=== PATIENT | male | born 1935 | race Caucasian/White ===

== ENCOUNTER → 2021-02-24 13:52 | Outpatient (BNVA) | payer MEDICARE, SELFPAY | PROVIDERS: PCP Internal Medicine; Visit Provider Urology | DX: N52.01 Erectile dysfunction due to arterial insufficiency (principal); N40.1 Benign prostatic hyperplasia with lower urinary tract symptoms | CPT/HCPCS: 51798; 81002; 99212 ==

== ENCOUNTER → 2021-04-20 10:30 | Outpatient (BNVA) | payer MEDICARE, SELFPAY | PROVIDERS: PCP Internal Medicine; Visit Provider Urology | DX: N40.1 Benign prostatic hyperplasia with lower urinary tract symptoms (principal); N52.01 Erectile dysfunction due to arterial insufficiency | CPT/HCPCS: 52000; 99212 ==

== ENCOUNTER 2021-08-08 08:58 | Day surgery (SDC) | payer MEDICARE, SELFPAY ==
[2021-07-19 11:39] VITALS: BP 152/72; PULSE 81; RESP 20; O2SAT 95; BMI 26.3
--- NOTE | 2021-07-19 11:44 | HO.ANESPROP2 ---
Documented by User: Susanne Reed NP 07/25/21 15:23 HPI - Anesthesia Eval Consult details Narrative: Rescheduled to 08/08/21 86yo M for Laser Ablation Prostate w/Green Light PCP cleared s/p left lower lobectomy, O2 prn Chest CT due 08/01/21 [facility] Active Problems Active Problems: All Active Problems (Updated 07/19/21 @ 11:34 by Magali Paz RN) Erectile dysfunction due to arterial insufficiency (Acute) Benign prostatic hyperplasia with lower urinary tract symptoms (Acute) Past Medical History Medical History (Updated 07/19/21 @ 12:00 by Magali Paz RN) Benign prostatic hyperplasia with lower urinary tract symptoms COPD (chronic obstructive pulmonary disease) COVID-19 vaccine series completed Elevated cholesterol Erectile dysfunction due to arterial insufficiency Feeling of incomplete bladder emptying HTN (hypertension) Hx of cancer of lung Hx of diverticulitis of colon Other hydrocele Requires supplemental oxygen Shortness of breath Skin cancer Family History Family history of problems with anesthesia: No Surgical History Surgical History (Updated 07/19/21 @ 08:33 by Magali Paz RN) H/O colonoscopy History of hydrocelectomy History of lobectomy of lung Hx of bilateral inguinal hernia repair Hx of cataract extraction History of Problems with Anesthesia: No Social History Social History Are you a primary care transition manager to a significant other at home: No Do you presently have visiting nurse or other home services: No Patient Tobacco Use Status: Former Tobacco user Quit Date: 1981 Tobacco use type: Cigarette Use of substances other than those prescribed or required for medical reasons: No Have you been hit, kicked, punched, or otherwise hurt by someone within the past year? If so, by whom?: No Are you DNR?: Yes Advance Directives Information Provided: Yes (as above noted) Advance Directives on File: No Recently lost weight without trying: No Eating poorly because of decreased appetite: No Nutrition Risks: Surgical patient >75years Poor oral hygiene: No (upper & lower full dentures) Narrative Narrative: No recent illness, Mild NELSON. Able to mow lawn with push mower, will use prn O2 after that type of activity but rarely needs day to day Meds Allergies Allergy/AdvReac Type Severity Reaction Status Date / Time No Known Allergies Allergy Verified 04/20/21 10:40 [No Known Allergies*] Home Medications Medication Instructions Recorded Confirmed Last Taken Type amlodipine 5 mg tablet 5 mg PO DAILY 02/24/21 07/19/21 Unknown History atorvastatin 20 mg tablet 20 mg PO DAILY 02/24/21 07/19/21 Unknown History hydrochlorothiazide 12.5 mg capsule 12.5 mg PO DAILY 02/24/21 07/19/21 Unknown History lisinopril 20 mg tablet 20 mg PO DAILY 02/24/21 07/19/21 Unknown History albuterol sulfate 2.5 mg INHALATION QID PRN 07/19/21 07/19/21 Unknown History fluticasone propionate 50 2 spray INTRANASAL DAILY 07/19/21 07/19/21 Unknown History mcg/actuation nasal spray,suspension ipratropium 20 mcg-albuterol 100 1 puff INHALATION QID PRN 07/19/21 07/19/21 Unknown History mcg/actuation mist for inhalation (Combivent Respimat) tiotropium 2.5 mcg-olodaterol 2.5 1 puff INHALATION BID 07/19/21 07/19/21 Unknown History mcg/actuation mist for inhalation (Stiolto Respimat) Exam Exam Date and Time: July 19, 2021 1144 Pertinent Lab Results Pertinent Lab Results: 07/07/21 CBC and BMP WNL at outside provider Narrative Narrative: EKG 07/2021 (outside provider) NSR @ 65 Q waves noted in V1, V2, V3, nonspecific T wave inversion in V1 (all finding similiar to 05/28) Lung CT 07/2021 Airway Mallampati Class: II TM Dist: >3cm Neck ROM: Full Denture: Upper and Lower Heart: RRR Lungs: Faint coarse RLL, Dim LLL Assessment and Plan Assessment Anesthesia Assessment: Anesthesia Plan Discussed and PAT Visit Final Anesthetic Review Family History of Problems with Anesthesia: No History of Problems with Anesthesia: No Documented by User: Jinny Huertas MD 08/08/21 10:14 [facility] Past Medical History Medical History (Updated 07/19/21 @ 12:00 by Magali Paz, BELINDA) Benign prostatic hyperplasia with lower urinary tract symptoms COPD (chronic obstructive pulmonary disease) COVID-19 vaccine series completed Elevated cholesterol Erectile dysfunction due to arterial insufficiency Feeling of incomplete bladder emptying HTN (hypertension) Hx of cancer of lung Hx of diverticulitis of colon Other hydrocele Requires supplemental oxygen Shortness of breath Skin cancer Surgical History Surgical History (Updated 07/19/21 @ 08:33 by Magali Paz, RN) H/O colonoscopy History of hydrocelectomy History of lobectomy of lung Hx of bilateral inguinal hernia repair Hx of cataract extraction Social History Social History Are you a primary care transition manager to a significant other at home: No Do you presently have visiting nurse or other home services: No Patient Tobacco Use Status: Former Tobacco user Quit Date: 1981 Tobacco use type: Cigarette Use of substances other than those prescribed or required for medical reasons: No Have you been hit, kicked, punched, or otherwise hurt by someone within the past year? If so, by whom?: No Are you DNR?: Yes Advance Directives Information Provided: Yes (as above noted) Advance Directives on File: No Recently lost weight without trying: No Eating poorly because of decreased appetite: No Nutrition Risks: Surgical patient >75years Poor oral hygiene: No (upper & lower full dentures) Meds Allergies Allergy/AdvReac Type Severity Reaction Status Date / Time No Known Allergies Allergy Verified 04/20/21 10:40 [No Known Allergies*] Home Medications Medication Instructions Recorded Confirmed Last Taken Type amlodipine 5 mg tablet 5 mg PO DAILY 02/24/21 07/19/21 Unknown History atorvastatin 20 mg tablet 20 mg PO DAILY 02/24/21 07/19/21 Unknown History hydrochlorothiazide 12.5 mg capsule 12.5 mg PO DAILY 02/24/21 07/19/21 Unknown History lisinopril 20 mg tablet 20 mg PO DAILY 02/24/21 07/19/21 Unknown History albuterol sulfate 2.5 mg INHALATION QID PRN 07/19/21 07/19/21 Unknown History fluticasone propionate 50 2 spray INTRANASAL DAILY 07/19/21 07/19/21 Unknown History mcg/actuation nasal spray,suspension ipratropium 20 mcg-albuterol 100 1 puff INHALATION QID PRN 07/19/21 07/19/21 Unknown History mcg/actuation mist for inhalation (Combivent Respimat) tiotropium 2.5 mcg-olodaterol 2.5 1 puff INHALATION BID 07/19/21 07/19/21 Unknown History mcg/actuation mist for inhalation (Stiolto Respimat) Assessment and Plan Final Anesthetic Review ASA Class: III Final Preanesthetic Review: Meds/Allgs Chart Reviewed, Consent Obtained/Reviewed and Anes Risks/Benef Reviewed Patient Risk: Intermediate Procedure Risk: Low Anesthetic Plan Anesthetic Plan: GA Disposition: Standard PACU
[2021-08-08 09:19] VITALS: BP 163/76; PULSE 73; RESP 16; TEMP 36.4; O2SAT 97
[2021-08-08] MEDS: Lactated Ringers 1,000 ML 100 ML IVCONT (09:48)
[2021-08-08] MEDS: levoFLOXacin/D5W 500 MG/100 ML PIGGYBACK 100 MG IV (09:53)
--- NOTE | 2021-08-08 10:41 | MHC.SHP ---
Pre-Procedural Eval Section A Date of Service: 08/08/21 Section B Chief Complaint: hyperplasia Details of Present Illness: BPH Relevant Social History: None Present Medications: see Short Stay Collaborative assessment Medical History: Significant History History of Previous Operations: No relevant previous surgery Allergies: Allergies Allergy/AdvReac Type Severity Reaction Status Date / Time No Known Allergies Allergy Verified 04/20/21 10:40 [No Known Allergies*] Review of Systems Sugical H&P ROS: Negative: Constitution, Cardiovascular, Respiratory, Neurological, Psychiatric, Hem-Onc, Allergic/Immunologic, Gastrointestinal, Genitourinary, Musculoskeletal, Integumentary, Endocrine and Eyes/Ears/Nose/Throat Exam Surgical H&P Exam: Normal: HEENT, Normal: Heart, Normal: Lungs, Normal: Extremities, Normal: Abdomen, Normal: Skin and Normal: Neurological Plan Diagnosis/Plan: Unchanged (Greenlight laser prostatectomy) I have reviewed the history and physical and performed a pertinent physical examination on my patient. No changes have occurred unless specified.
--- NOTE | 2021-08-08 11:56 | P.OP_ITS ---
Operative Note Operative Note Date of Service: 08/08/21 Narrative: PreOperative Diagnosis: Bladder outlet obstruction Post Operative Diagnosis: Bladder outlet obstruction Procedure: GreenLight laser enucleation of the prostate Surgeon: Dr Matheus Haas Anesthesia: General Indications for procedure: History of bladder outlet obstruction. Treated with alpha-see and other medications. Still with symptoms. Recommendation for prostate procedure with laser enucleation of prostate. It has been discussed. Focus was placed on development of retrograde examination which is a normal part of this procedure. Procedure: After informed consent was verified the patient was brought to the operating room and placed in a supine position. Anesthesia was administered per protocol. Patient was placed in modified dorsal lithotomy position and prepped and draped in a sterile fashion. Safety pause time-out was confirmed. Antibiotics have been given. Twenty-four Albanian laser cystoscope was inserted per urethra. No abnormalities found the anterior posterior urethra. The bladder was filled on both ureteric orifices were seen in normal position away from our area of interest. Using a GreenLight laser settings of 80 w incisions were made at the 5 and 7 o'clock position. They were taken down and then laterally on each side. They were brought from the bladder neck down to the level of the veru. These defined the lateral aspects of the median lobe area. The median lobe was ablated and enucleated tissue removed. Once the median lobe area had been cleaned attention was directed to the lateral lobes. We started with the patient's left lateral lobe. Firstly the 05:00 o'clock groove was further developed. This was moved in the lateral position to undermine the tissue on the lateral side. Focus was then placed on the laser at the 1 o'clock position in developing a secondary groove down to the level of bladder fibers. The intervening tissue between these 2 grooves was removed with a combination of enucleation ablation working from the apex toward the bladder neck. A similar procedure was repeated on the patient's right-hand side. Laser time 24 min Energy 184 kJ When this was completed debris and pieces of prostate removed from the bladder. Both ureteric orifices were reviewed again in shown to be patent in away from any areas of energy damage. The apical area was reviewed in any stray ooze was controlled. A 22 Albanian 30 cc balloon Prakash catheter was placed over stylet into the bladder. Clear efflux was obtained. 30 cc was placed in the balloon and gentle traction was placed. A snap was used to hold tension once the patient will be moved and transported. Once transportation its finish this novel be removed. A belladonna and opiate suppository was placed for postprocedure pain management. He tolerated procedure well was extubated in the operating and transferred in a stable condition to the recovery area. Pathology: Prostate tissue Drains: Prakash catheter
[2021-08-08 12:02] VITALS: BP 132/60; PULSE 65; RESP 11; TEMP 36.1; O2SAT 99
[2021-08-08 12:07] VITALS: BP 130/57; PULSE 82; RESP 16; O2SAT 94
[2021-08-08 12:12] VITALS: BP 114/62; PULSE 79; RESP 16; O2SAT 94
[2021-08-08 12:17] VITALS: BP 131/57; PULSE 81; RESP 16; O2SAT 95
[2021-08-08 12:32] VITALS: BP 132/61; PULSE 74; RESP 18; TEMP 36.4; O2SAT 95
== END 2021-08-08 13:13 | disposition home or self-care (01) ==
PROVIDERS: PCP Internal Medicine; Visit Provider Urology
PROC: (CPT 52648; principal; 2021-08-08 11:40)
DX: N40.1 Benign prostatic hyperplasia with lower urinary tract symptoms (principal); N13.8 Other obstructive and reflux uropathy
CPT/HCPCS: 52649; 88305; J1956; J2405; J3010

== ENCOUNTER → 2021-08-11 09:38 | Outpatient (BNVA) | payer MEDICARE, SELFPAY | PROVIDERS: PCP Internal Medicine | DX: N40.1 Benign prostatic hyperplasia with lower urinary tract symptoms (principal) | CPT/HCPCS: 51700; 51798 ==

== ENCOUNTER → 2021-09-21 09:54 | Outpatient (BNVA) | payer MEDICARE, SELFPAY | PROVIDERS: PCP Internal Medicine; Visit Provider Urology | DX: N40.1 Benign prostatic hyperplasia with lower urinary tract symptoms (principal); N52.01 Erectile dysfunction due to arterial insufficiency | CPT/HCPCS: 51798; 99212 ==

== ENCOUNTER → 2021-12-29 09:50 | Outpatient (BNVA) | payer MEDICARE, SELFPAY | PROVIDERS: PCP Internal Medicine; Visit Provider Urology | DX: N40.1 Benign prostatic hyperplasia with lower urinary tract symptoms (principal); R35.0 Frequency of micturition; R35.1 Nocturia | CPT/HCPCS: Q3014 ==

== ENCOUNTER 2022-10-04 11:42 | Outpatient (AMB) | payer MEDICARE, SELFPAY ==
--- NOTE | 2022-10-02 13:12 | MHC.OFFVIS ---
Intake Intake Visit Reasons: 6 month follow up PSA (set) Intake Note: Patient is present for Telephone PSA Follow Up Urology Medication: Finasteride, Terazosin Blood Thinners: Allergies No Known Allergies [No Known Allergies*] Allergy (Verified 10/02/22 13:13) HPI HPI Comments History of Present Illness Details Jason HERNÁNDEZ is a very pleasant male. They are a patient of Dr Villagomez. They are seen in the office today for the following urologic conditions. - lower urinary tract symptoms Telemedicine evaluation 15 minute consultation Doing very well with bladder emptying 12 month follow-up PSA Lower urinary tract symptoms Longstanding Large prostate 120 g Prior therapy the laser prostatectomy July 2021 Prior medications finasteride and terazosin PSA 01/03 2.0, 09/02 2.7 off medications Testicular/Scotal orchalgia-swelling: Main issue is urgency frequency with nocturia The symptoms started or were observed: had hydrocele for many years concerned about palpable lump. The pain is located on the left. [facility] Medical History Benign prostatic hyperplasia with lower urinary tract symptoms COPD (chronic obstructive pulmonary disease) COVID-19 vaccine series completed Elevated cholesterol Erectile dysfunction due to arterial insufficiency Feeling of incomplete bladder emptying HTN (hypertension) Hx of cancer of lung Hx of diverticulitis of colon Other hydrocele Requires supplemental oxygen Shortness of breath Skin cancer Surgical History H/O colonoscopy History of hydrocelectomy History of lobectomy of lung Hx of bilateral inguinal hernia repair Hx of cataract extraction Social History Are you a primary pet care associate to a significant other at home: No Do you presently have visiting nurse or other home services: No Patient Tobacco Use Status: Former Tobacco user Quit Date: 1981 Tobacco use type: Cigarette Review of Systems Const All systems reviewed & are unremarkable except as noted in HPI and below Reports no additional complaints Resp Reports no additional complaints GI Reports no additional complaints Reports as per HPI Musc Reports no additional complaints Physical Exam Telemedicine evaluation Appropriate responses Regular breathing rate and rhythm HEENT Head: Yes normal to inspection Ears: hearing grossly normal bilaterally Eyes General: appearance normal, both eyes and all related structures Neck Neck: Yes normal visual inspection Chest Chest palpation & inspection: normal inspection of the chest Resp Effort & Inspection: normal respiratory effort and able to speak in complete sentences Assessment & Plan Assessment & Plan (1) Erectile dysfunction due to arterial insufficiency: Code(s): N52.01 - Erectile dysfunction due to arterial insufficiency (2) Benign prostatic hyperplasia with lower urinary tract symptoms: Code(s): N40.1 - Benign prostatic hyperplasia with lower urinary tract symptoms Plan Twelve month follow-up PSA Patient Instructions: Imaging studies, laboratory and physical exam results were discussed and reviewed in detail. No major barriers to patient understanding were identified. An opportunity to ask questions regarding the treatment plan was provided. All questions were answered. The patient expressed understanding and agreement with the above treatment plan. The patient is aware they should contact our office by phone for worsening of their current condition or the appearance of new urologic symptoms. Compliance is encouraged with any medications and followup testing that is ordered. It is a privilege to participate in the urologic care of your patient. If you have any questions or concerns regarding treatment for the above conditions, or other urologic issues, please do not hesitate to contact me. The office telephone contact is [phone]. This note is constructed using voice recognition software. While every effort has been made to ensure accuracy pressed or blown glass worker errors may have been included. Yours sincerely, Dr Matheus Haas MD, [facility] - Urology Providers of Expert, Compassionate Care for the Genitourinary System Telehealth Telehealth Location of provider rendering services: practice address Location of patient: address on file Patient Identification confirmed using: Name, : Yes Telehealth method: video Patient verbally consented to treatment: Yes Patient verbally consented to billing insurance company: Yes Patient informed of any privacy concerns related to visit: Yes Coding Level of Care Code Tele Est Pt Level 3 (14569) Diagnoses Erectile dysfunction due to arterial insufficiency N52.01 Benign prostatic hyperplasia with lower urinary tract symptoms N40.1
== END 2023-08-22 11:50 | disposition home or self-care (01) ==
PROVIDERS: PCP Internal Medicine; Visit Provider Urology
DX: N52.01 Erectile dysfunction due to arterial insufficiency (principal); N40.1 Benign prostatic hyperplasia with lower urinary tract symptoms
CPT/HCPCS: 99213; 99499

== ENCOUNTER → 2022-10-04 11:42 | Outpatient (BNVA) | payer MEDICARE, SELFPAY | PROVIDERS: PCP Internal Medicine; Visit Provider Urology ==